=== PATIENT | male | born 1980 | race African-American/Black ===

== ENCOUNTER 2019-06-14 13:21 | Emergency (ER) | payer SELFPAY ==
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
[2019-06-14 13:46] VITALS: BP 143/89
--- NOTE | 2019-06-14 13:54 | UC ---
FLU HPI - HPI Summary HPI Summary: 39 year old female with flu like illness . c/o chest discomfort with cough and deep breaths, productive cough with greenish secretions, chills that started 2 days ago. States has had cold symptoms 2 weeks prior. 2- states R groin area has a hernia that is pushed out with cough, blowing nose. States this has been going on for 1 year. - History of Current Complaint Chief Complaint: UCRespiratory Stated Complaint: CONGESTION,COUGH Time Seen by Provider: 06/14/19 13:52 Hx Obtained From: Patient Pain Intensity: 0 - Allergy/Home Medications Allergies/Adverse Reactions: Allergies Allergy/AdvReac Type Severity Reaction Status Date / Time No Known Allergies Allergy Verified 06/14/19 13:38 Home Medications: Home Medications Lisinopril TAB* [Prinivil TAB*] 10 mg PO DAILY 06/14/19 [History Confirmed 06/14] metFORMIN* [Glucophage 500 MG TAB *] 500 mg PO DAILY 06/14/19 [History Confirmed 06/14/19] PMH/Surg Hx/FS Hx/Imm Hx Previously Healthy: Yes Endocrine History: Diabetes Cardiovascular History: Hypertension - Surgical History Surgical History: None - Social History Alcohol Use: Occasionally Substance Use Type: None Smoking Status (MU): Heavy Every Day Tobacco Smoker Type: Cigarettes Amount Used/How Often: 1 PPD Review of Systems All Other Systems Reviewed And Are Negative: Yes Constitutional: Positive: Chills, Fatigue ENT: Positive: Ear Ache, Nasal Discharge Respiratory: Positive: Cough Gastrointestinal: Positive: Other - hernia Physical Exam Triage Information Reviewed: Yes Appearance: Well-Appearing, No Pain Distress, Well-Nourished Vital Signs: Initial Vital Signs Temp 100.1 F 06/14/19 13:39 Pulse 74 06/14/19 13:39 Resp 18 06/14/19 13:39 BP 143/89 06/14/19 13:39 Pulse Ox 99 06/14/19 13:39 Vital Signs Reviewed: Yes Eye Exam: Normal ENT Exam: Normal Dental Exam: Normal Neck exam: Normal Neck: Positive: 1 Respiratory Exam: Normal Cardiovascular Exam: Normal Abdominal Exam: Normal Abdomen Description: Positive: Nontender, No Organomegaly, Soft, Other: - small right inguinal hernia reducible. Negative: Bruit, CVA Tenderness (R), CVA Tenderness (L) Musculoskeletal Exam: Normal Neurological Exam: Normal Psychological Exam: Normal Skin Exam: Normal Flu Course/Dx - Course Course Of Treatment: neg flu viral illness supportive care RTO prn refer to gen surgery for hernia -- go to ED if sx worsen - Differential Dx/Diagnosis Differential Diagnosis/HQI/PQRI: Bronchitis, Broncholiolitis, Influenza, Pneumonia, RSV, Upper Respiratory Infection Provider Diagnosis: Viral illness, Inguinal hernia, right Discharge ED - Sign-Out/Discharge Documenting (check all that apply): Patient Departure All imaging exams completed and their final reports reviewed: No Studies - Discharge Plan Condition: Good Disposition: HOME Prescriptions: Benzonatate CAP* [Tessalon 100 MG CAP*] 100 mg PO TID PRN #20 cap PRN Reason: Cough Patient Education Materials: Inguinal Hernia (ED), Viral Syndrome (ED) Referrals: Willie Steve MD [Medical Doctor] - (Surgery referral ) No Primary Care Phys,NOPCP [Primary Care Provider] - 3 Days - Billing Disposition and Condition Condition: GOOD Disposition: Home
[2019-06-14 14:04] LABS: Influenza A Molecular NEGATIVE (Negative); Influenza B Molecular NEGATIVE (Negative)
== END 2019-06-14 14:38 | disposition home or self-care (01) ==
LOC: UCCORT 13:21
DX: K40.90 Unilateral inguinal hernia, without obstruction or gangrene, not specified as recurrent (principal); B34.9 Viral infection, unspecified; E11.9 Type 2 diabetes mellitus without complications; I10 Essential (primary) hypertension; F17.210 Nicotine dependence, cigarettes, uncomplicated; Z79.84 Long term (current) use of oral hypoglycemic drugs; Z79.899 Other long term (current) drug therapy
CPT/HCPCS: 99202; G0463